=== PATIENT | female | born 1965 | race Caucasian/White ===

== ENCOUNTER 2021-11-02 12:15 | Emergency (ER) | payer OTHER, SELFPAY ==
[~2021-11-02] VITALS: Ht 162.6 cm; Wt 81.6 kg
[2021-11-02] MEDS ORDERED: ONDA-8 TL (12:56)
[2021-11-02 12:57] VITALS: BP_SYST 110
--- NOTE | 2021-11-02 12:59 | NUR ---
Patient to ER bed 8 to gown for evaluation. Side rails up. ASSUMED CARE.
[2021-11-02] MEDS ORDERED: ONDANSETRON 4 MG ODT TAB PO ONE (13:00)
--- NOTE | 2021-11-02 13:00 | NUR ---
MERVAT Manzanares at bedside examining patient.
--- NOTE | 2021-11-02 13:05 | NUR ---
PT REPORTS TO COVID (+)RESULTS AFTER WEEKEND TRIP.
--- NOTE | 2021-11-02 13:06 | NUR ---
PT REPORTS VOMITING AND FEVER.PT'S VSS. PT EDUCATED ON COVID CARE AT HOME.PT VERBALIZED UNDERSTANDING.
[2021-11-02 13:20] VITALS: BP_SYST 110
== END 2021-11-02 13:20 | disposition left against medical advice (07) ==
LOC: SED 12:15
DX: U07.1 COVID-19 (principal); R63.0 Anorexia; M79.18 Myalgia, other site; R50.9 Fever, unspecified
CPT/HCPCS: 99283; Q0162